=== PATIENT | male | born 1980 | race Caucasian/White ===

== ENCOUNTER 2017-08-19 13:40 | Emergency (ER) | payer MEDICARE ==
[~2017-08-19] VITALS: Ht 182.9 cm; Wt 90.7 kg
[~2017-08-19 13:40] MED LIST: ACYC800T PO; AMIT100T2 PO; AMIT50TA3 PO; CEPH500C PO; CITA10TA70 PO; CTLP20T PO; CYCL10TA9; CYCL10TA9 PO; ELAVIL; LISI10TA PO; LVT.025T PO; MELO-195 PO; METO50TA7 PO; NAPR-243 PO; OXC40TCR PO; OXC5T PO; OXYC-12 PO; OXYC-272 PO; OXYC10TA7 PO; OXYC80TA39 PO; PRD20T PO; PRD5T PO; PRM25T PO; TRM50T PO; VENL150C PO; VERA240C2 PO; VNL75CCR PO
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
[2017-08-19] MEDS ORDERED: HYDROmorphone (DILAUDID) 2 MG/ML VIAL IVP ONE (14:30)
[2017-08-19] MEDS ORDERED: KETOROLAC 60 MG/2 ML VIAL IM ONE (14:30)
--- NOTE | 2017-08-19 14:30 | ED Back Pain ---
General Chief Complaint: Back Problems Stated Complaint: LOW BACK,LEFT LEG PAIN Nursing Triage Note: ruddy low back pain. Onset 3 days ago. Denies acute trauma. Hx of low back disease. Nursing Sepsis Screen: No Definite Risk Source of Information: Patient, Family Exam Limitations: No Limitations History of Present Illness Time Seen by Provider: 14:30 Initial Comments This 37-year-old white male presents with a complaint of severe low back pain radiating down posterior aspect of his left leg. Patient has had long-standing disc disease for which he has had surgery in the past. Patient denies loss of bowel or bladder control. He denies paralysis of the lower extremities. The patient denies recent trauma to the low back. There is no associated fever, chills, dysuria, or constipation. Allergies and Home Medications Allergies Coded Allergies: Penicillins (Unverified Allergy, Mild, 09/10/09) morphine (Unverified Allergy, Mild, 09/10/09) Home Medications Amitriptyline Hcl 100 Mg Tablet, 50 MG PO BID, (Reported) Meloxicam 15 Mg Tablet, 1 PO DAILY, (Reported) Oxycodone Hcl 10 Mg Tablet, 10 MG PO BID, (Reported) Oxycodone Hcl 5 Mg Tab, 30 MG PO BID, (Reported) Venlafaxine Hcl 150 Mg Cap.sr.24h, 1 EACH PO DAILY, (Reported) Verapamil Hcl 240 Mg Cap24h.pel, 1 EACH PO DAILY, (Reported) Constitutional: No chills EENTM: No blurred vision Respiratory: No cough Cardiovascular: No chest pain Gastrointestinal: No abdominal pain Genitourinary: No discharge, No dysuria Musculoskeletal: see HPI, back pain Skin: No rash Psychiatric/Neurological: No Symptoms Reported Past Yvopsen-Vymzjs-Owtdmy Hx Patient Social History Recent Foreign Travel: No Contact w/Someone Who Travel: No Recent Infectious Disease Expo: No Immunizations Up To Date Tetanus Booster (TDap): Less than 5yrs Musculoskeletal Musculoskeletal Disorders: Degenerate Disk Disease, Chronic Back Pain Psychosocial Behavioral Health Disorders: Anxiety, Depression Reviewed Nursing Assessment Reviewed/Agree w Nursing PMH: Yes Family Medical History Significant Family History: No Pertinent Family Hx Physical Exam Vital Signs Vital Sign - Last 12Hours 08/19/17 14:17 Temp 98.1 Pulse 70 Resp 16 B/P (MAP) 158/85 (109) O2 Delivery Room Air Capillary Refill : Less Than 3 Seconds General Appearance: WD/WN, Mild Distress HEENT: Normal ENT Inspection Neck: Normal Inspection Cardiovascular: No Tachycardia Respiratory: No Respiratory Distress Back: Normal Inspection, Other (there is patient's back pain is located over the lower lumbar region) Extremity: Normal Inspection, Normal Range of Motion Neurologic/Psychiatric: Oriented x3, Normal Mood/Affect Skin: Normal Color, Warm/Dry Progress/Results/Core Measures Results/Orders My Orders Orders - RACHEL BLEVINS MD Hydromorphone Injection (Dilaudid Inject (08/19/17 14:30) Ketorolac Injection (Toradol Injection) (08/19/17 14:30) Cyclobenzaprine Tablet (Flexeril Tablet) (08/19/17 21:00) Vital Signs/I&O Vital Sign - Last 12Hours 08/19/17 14:17 Temp 98.1 Pulse 70 Resp 16 B/P (MAP) 158/85 (109) O2 Delivery Room Air Blood Pressure Mean: 109 Progress Note : Time: 14:33 Progress Note Discussion the patient's problems and potential for treatment was undertaken. Patient received a milligram of Dilaudid, 60 mg of Toradol IM and Norflex orally. Patient was referred to orthopedics for further follow-up. He was asked to follow up closely with his physician at [facility]. Departure Impression Impression: Primary Impression: Sciatica Qualified Codes: M54.32 - Sciatica, left side Disposition: 01 HOME, SELF-CARE Condition: Improved Departure-Patient Inst. Decision time for Depature: 14:35 Referrals: [facility]/CEE PENG,LOCAL PHYSICIAN (PCP) Primary Care Physician NAYE MINAYA DO Patient Instructions: Low Back Pain (DC), Radiculopathy (DC) Add. Discharge Instructions: Percocet, Toradol, and Norflex as prescribed. Close follow-up with orthopedics. Follow-up with your provider at [facility]. Return if any problems or questions All discharge instructions reviewed with patient and/or family. Voiced understanding. RACHEL BLEVINS MD Aug 19, 2017 14:30
[2017-08-19] MEDS ORDERED: CYCLOBENZAPRINE 10 MG (FLEXERIL) TAB ONE (14:44)
[2017-08-19 15:00] VITALS: BP 148/80
[2017-08-19] MEDS ORDERED: CYCLOBENZAPRINE 10 MG (FLEXERIL) TAB PO SCH (21:00)
== END 2017-08-19 15:00 | disposition home or self-care (01) ==
LOC: EDUNIT# 13:40 → ER 13:43
DX: M54.30 Sciatica, unspecified side (principal); F41.9 Anxiety disorder, unspecified
CPT/HCPCS: 99284

== ENCOUNTER 2017-08-27 12:57 | Emergency (ER) | payer MEDICARE ==
[~2017-08-27] VITALS: Ht 185.4 cm; Wt 90.7 kg
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
[2017-08-27] MEDS ORDERED: PRD20T PO (13:41)
[2017-08-27] MEDS ORDERED: MELO15TA39 PO (13:41)
[2017-08-27] MEDS ORDERED: OXYC-197 PO (13:41)
[2017-08-27 13:45] VITALS: BP 150/87
== END 2017-08-27 13:45 | disposition home or self-care (01) ==
LOC: EDUNIT# 12:57 → ER 12:58
DX: F41.9 Anxiety disorder, unspecified (principal); F32.9 Major depressive disorder, single episode, unspecified; M54.5 Low back pain; F17.200 Nicotine dependence, unspecified, uncomplicated
CPT/HCPCS: 99281

== ENCOUNTER 2019-08-22 15:55 | Emergency (ER) | payer MEDICARE ==
[~2019-08-22] VITALS: Ht 182.9 cm; Wt 90.9 kg
[~2019-08-22 15:55] MED LIST changes: +MELO15TA39 PO; +OXYC1TAB87 PO
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
--- NOTE | 2019-08-22 16:53 | Diagnostic Imaging Report ---
EXAMINATION: Right wrist 3 or more views. HISTORY: Wrist pain. COMPARISON: None available. FINDINGS: There is a minimally displaced ulnar styloid process fracture. No other fracture is seen. Joint spaces are normal. IMPRESSION: 1. Minimally displaced ulnar styloid process fracture. Dictated by: Dictated on workstation # [id number]
[2019-08-22 17:00] VITALS: BP 154/92
== END 2019-08-22 17:15 | disposition home or self-care (01) ==
LOC: EDUNIT# 15:55 → ER 15:56
DX: S52.691A Other fracture of lower end of right ulna, initial encounter for closed fracture (principal); F41.9 Anxiety disorder, unspecified; F32.9 Major depressive disorder, single episode, unspecified; F17.210 Nicotine dependence, cigarettes, uncomplicated; Z88.0 Allergy status to penicillin; Z88.5 Allergy status to narcotic agent; Z79.52 Long term (current) use of systemic steroids; W22.8XXA Striking against or struck by other objects, initial encounter
CPT/HCPCS: 73110